=== PATIENT | female | born 1965 | race American Indian/Alaskan Native ===

== ENCOUNTER 2018-11-02 10:25 | Day surgery (SDC) | payer OTHER ==
[2018-11-02] MEDS ORDERED: DECADRON ONE (10:51)
[2018-11-02] MEDS ORDERED: ZOFRAN ONE (10:51)
[2018-11-02] MEDS ORDERED: XYLOCAINE MPF 2% ONE (10:51)
[2018-11-02] MEDS ORDERED: SUBLIMAZE ONE (10:52)
[2018-11-02] MEDS ORDERED: DIPRIVAN 10 MG/ML IV ONE (10:52)
[2018-11-02] MEDS ORDERED: LACTATED RINGERS 1,000 ML IV SCH (11:00)
[2018-11-02] MEDS ORDERED: ANCEF/STERILE WATER 2 GM/20 ML IV NR (11:00)
[2018-11-02] MEDS ORDERED: DILAUDID IV PRN (11:20)
--- NOTE | 2018-11-02 11:20 | Anesthesia Day of Surgery ---
Anesthesia Day of Surgery - Day of Surgery Patient Examined: Yes Patient H&P Reviewed: Yes Patient is NPO: Yes
--- NOTE | 2018-11-02 11:20 | Anesthesia Consultation ---
Anesthesia Consult and Med Hx Date of service: 11/02/18 - Airway Anesthetic Teeth Evaluation: Good (missing bottom right and left molars) ROM Head & Neck: Adequate Mental/Hyoid Distance: Adequate Mallampati Class: Class II Intubation Access Assessment: Probably Good - Pulmonary Exam CTA: Yes - Cardiac Exam Cardiac Exam: RRR - Pre-Operative Health Status ASA Pre-Surgery Classification: ASA2 Proposed Anesthetic Plan: General - Pulmonary Hx Smoking: No Hx Asthma: No Hx Respiratory Symptoms: Yes (occasional cough associated with GERD; asymptomatic today) Hx Sleep Apnea: No - Cardiovascular System Hx Hypertension: Yes (took antihypertensive this morning) Hx Heart Attack/AMI: No Hx Percutaneous Transluminal Coronary Angioplasty (PTCA): No - Central Nervous System Hx Seizures: No CVA: No Hx Back Pain: Yes (DJD) - Gastrointestinal Hx Gastroesophageal Reflux Disease: Yes (asymptomatic today) - Endocrine Hx Renal Disease: No Hx Liver Disease: No Hx Insulin Dependent Diabetes: No Hx Non-Insulin Dependent Diabetes: No Hx Thyroid Disease: No - Other Systems Hx Obesity: No - Additional Comments Anesthesia Medical History Comments: Hx PONV with prior anesthetic.
[2018-11-02] MEDS ORDERED: PEPCID IV NR (11:47)
[2018-11-02] MEDS ORDERED: PEPCID IV ONE (11:50)
[2018-11-02] MEDS ORDERED: TRANSDERM-SCOP TD NR (12:00)
[2018-11-02] MEDS ORDERED: VERSED IV NR (12:00)
[2018-11-02] MEDS ORDERED: WATER FOR IRRIG STERILE IR ONE (12:21)
[2018-11-02] MEDS ORDERED: OMNIPAQUE (240mg) IV ONE (12:21)
--- NOTE | 2018-11-02 12:29 | Post Operative Note ---
Date of procedure: 11/02/18 Pre-op diagnosis: l ureteral stone Post-op diagnosis: same Findings: as above Procedure: cysto rpg ureteroscopy laser stent Anesthesia: GETA Surgeon: ALLYSON HUANG Estimated blood loss: minimal Pathology: list (stone) Specimen disposition: given to patient/family Condition: stable Disposition: PACU
--- NOTE | 2018-11-02 12:31 | Discharge Summary ---
Short Stay Discharge Plan Activity: other (no straning ) Weight Bearing Status: Full Weight Bearing Diet: low fat, low cholesterol, low salt Follow up with: JERRICA BRIONES MD [Primary Care Provider] - 7 Days ALLYSON HUANG MD [Staff Physician] - 7 Days
[2018-11-02] MEDS ORDERED: NEO SYNEPHRINE/NS Syringe(OR USE) IV ONE (12:52)
--- NOTE | 2018-11-02 13:21 | Post Anesthesia Evaluation ---
- Post Anesthesia Evaluation Patient Participated: Yes Airway Patent: Yes Stable Respiratory Function: Yes Nausea/Vomiting: No Temp > 96.8F: Yes Pain Manageable: Yes Adequeate Hydration: Yes Anesthesia Complications: No
[2018-11-02 14:21] VITALS: BP 128/76
--- NOTE | 2018-11-02 15:14 | Fluoroscopy Report ---
Retrograde pyelogram and ureteral dilatation: The initial images prior to contrast demonstrates a small calculus consistent with the distal left ureter. Adjacent phleboliths are noted. Retrograde injection of contrast demonstrates at least one and possibly a smaller second filling defect consistent with the previously noted ureteral calculus. There is filling of the distal third of the ureter proximal to the calculus with no dilatation. A balloon was introduced with full distention in the distal ureter. A wire was placed into the upper ureter possibly within the left renal collecting system which is not included. Only a small amount contrast is noted in the collecting system. A left nephroureteral catheter was left in good position. The initial calculus is no longer noted. Impression: Removal of left ureteral calculus.
--- NOTE | 2018-11-02 16:19 | Operative Report ---
PREOPERATIVE DIAGNOSIS: Intermittently severe left flank pain, left distal 6 mm ureteral stone. POSTOPERATIVE DIAGNOSIS: Intermittently severe left flank pain, left distal 6 mm ureteral stone. PROCEDURE: Cystoscopy, left retrograde, left ureteral balloon dilatation, ureteroscopy, stone extraction J stent. SURGEON: Elijah Brasher MD ANESTHESIA: General. FINDINGS: This woman who I saw her last week with flank pain. She had moderate pain. She now presents for treatment for a distal stone. PROCEDURE IN DETAIL: The patient brought to the operating room and placed on the operating table. Following induction of anesthesia, placed in lithotomy position, prepped and draped in usual sterile fashion. Cystourethroscopy showed what appears to be a distal stone on the KUB. A retrograde confirmed it. Glidewire coiled in the kidney. Balloon dilatation was carried out and the stone was extracted. The patient tolerated this procedure well. No complications. Double J coiled in the kidney. We left the string, brought to recovery in stable condition. JOB# [id number] GEORGETTE/OBINNA
== END 2018-11-02 10:26 | disposition home or self-care (01) ==
LOC: OR 10:25
PROVIDERS: ATTEND Urology
DX: N20.1 Calculus of ureter (principal); I10 Essential (primary) hypertension; G47.30 Sleep apnea, unspecified; K21.9 Gastro-esophageal reflux disease without esophagitis; M19.90 Unspecified osteoarthritis, unspecified site; Z98.890 Other specified postprocedural states; Z88.2 Allergy status to sulfonamides; Z79.899 Other long term (current) drug therapy; Z96.643 Presence of artificial hip joint, bilateral
CPT/HCPCS: 52332; 52352; 74420; 74485; A4217; C1726; C1758; C1769; J0690; J1100; J2250; J2370; J2405; J2704; J3010; J7120; Q9967